=== PATIENT | male | born 1940 | race Caucasian/White ===

== ENCOUNTER → 2017-03-20 | Outpatient (CLI) | payer MEDICARE | END | disposition home or self-care (01) | LOC: PCVCCLINIC 10:13 | PROVIDERS: ATTEND Internal Medicine | DX: I42.2 Other hypertrophic cardiomyopathy (principal); R01.1 Cardiac murmur, unspecified; R00.1 Bradycardia, unspecified; R06.09 Other forms of dyspnea; G70.00 Myasthenia gravis without (acute) exacerbation; I45.10 Unspecified right bundle-branch block; I44.0 Atrioventricular block, first degree; I44.5 Left posterior fascicular block; Z79.82 Long term (current) use of aspirin | CPT/HCPCS: 93005; G0463 ==

== ENCOUNTER → 2017-03-26 | Outpatient (CLI) | payer MEDICARE ==
--- NOTE | 2017-03-26 13:24 | PCVCIMAG ---
APPROVED REPORT Study performed: 03/26/2017 11:42:34 EXAM: Comprehensive 2D, Doppler, and color-flow Echocardiogram Patient Location: Echo lab Status: routine BSA: 2.32 HR: 80 bpmBP: 110/68 mmHg Rhythm: Pacemaker Other Information Study Quality: Technically Limited Indications Murmur. Hypertrophic cardiomyopathy. Dyspnea. Bradycardia. Pacemaker 2D Dimensions IVSd: 12.38 (7-11mm)LVOT Diam: 27.38 (18-24mm) LVDd: 38.57 mm PWd: 12.35 (7-11mm)Ascending Ao: 37.29 (22-36mm) LVDs: 31.20 (25-40mm) Left Atrium: 29.56 (27-40mm) Aortic Root: 35.07 mm Volumes Left Atrial Volume (Systole) Single Plane 4CH: 24.23 mLSingle Plane 2CH: 15.93 mL LA ESV Index: 10.00 mL/m2 Aortic Valve AoV Peak Honorio.: 2.61 m/s AO Peak Gr.: 27.18 mmHg Mitral Valve E/A Ratio: 0.6 MV Decel. Time: 394.95 ms MV E Max Honorio.: 0.58 m/s MV A Honorio.: 1.02 m/s Pulmonary Valve PV Peak Gr.: 3.22 mmHg Left Ventricle The left ventricle is normal size. There is normal LV segmental wall motion. Mild concentric left ventricular hypertrophy. Left ventricular systolic function is normal. The left ventricular ejection fraction is within the normal range. LVEF is 55-60%. Grade I - abnormal relaxation pattern. Right Ventricle The right ventricle is normal size. The right ventricular systolic function is normal. Atria The left atrium size is normal. The right atrium size is normal. Aortic Valve LVOT peak velocity 6.1 m/s peak gradient 152mmhg, Valsalva maneuver 7.1m/s peak gradient of 204mmhg. No aortic regurgitation is present. There is no aortic valvular stenosis. Mitral Valve The mitral valve is normal in structure. There is no mitral valve regurgitation noted. No evidence of mitral valve stenosis. Tricuspid Valve The tricuspid valve is normal in structure. There is no tricuspid valve regurgitation noted. Pulmonic Valve The pulmonary valve is normal in structure. There is no pulmonic valvular regurgitation. Great Vessels The aortic root is normal in size. IVC is normal in size and collapses with >50% inspiration Pericardium There is no pericardial effusion. <Conclusion> The left ventricle is normal size. LVEF is 55-60%. LVOT peak velocity 6.1 m/s peak gradient 152mmhg, Valsalva maneuver 7.1m/s peak gradient of 204mmhg. There is no aortic valvular stenosis. The mitral valve is normal in structure. The tricuspid valve is normal in structure. The pulmonary valve is normal in structure.
== END | disposition home or self-care (01) ==
LOC: PCVCIMAG 11:21
PROVIDERS: ATTEND Internal Medicine
DX: I42.2 Other hypertrophic cardiomyopathy (principal); I51.7 Cardiomegaly; E78.5 Hyperlipidemia, unspecified; Z95.0 Presence of cardiac pacemaker
CPT/HCPCS: 93306

== ENCOUNTER → 2018-03-19 | Outpatient (CLI) | payer MEDICARE | END | disposition home or self-care (01) | LOC: PCVCCLINIC 09:40 | PROVIDERS: ATTEND Internal Medicine | DX: I42.2 Other hypertrophic cardiomyopathy (principal); G70.00 Myasthenia gravis without (acute) exacerbation; Z95.0 Presence of cardiac pacemaker; Z79.82 Long term (current) use of aspirin; Z79.899 Other long term (current) drug therapy | CPT/HCPCS: 93005; G0463 ==

== ENCOUNTER → 2019-04-05 | Outpatient (CLI) | payer MEDICARE | END | disposition home or self-care (01) | LOC: PCVCCLINIC 13:55 | PROVIDERS: ATTEND Internal Medicine | DX: I42.2 Other hypertrophic cardiomyopathy (principal); G70.00 Myasthenia gravis without (acute) exacerbation; E78.5 Hyperlipidemia, unspecified; R06.00 Dyspnea, unspecified | CPT/HCPCS: G0463 ==